=== PATIENT | female | born 1955 | race Caucasian/White ===

== ENCOUNTER 2018-03-07 09:18 | Emergency (ER) | payer OTHER ==
[2018-03-07] MEDS ORDERED: ACETAMINOPHEN 500 MG TAB PO ONE (09:43)
--- NOTE | 2018-03-07 10:22 | EDPHY ---
H & P Time Seen by Provider: 03/07/18 09:29 HPI/ROS: This patient describes a closed head injury at work. She explains that she was facing away from her desk in a standing position and thought her chair was closer to her when she attempted to sit down. She only glance the edge of the chair which then slipped away causing of the fall backward striking her occiput against the edge of her wooden desk and then striking it again against a metal support bar below the desk. She was briefly dazed for which she describes as sec she estimates several seconds. She sat on the floor thereafter and then regained her composure noted a mild headache in the occiput to 3/10 intensity. She took ibuprofen 600 mg shortly thereafter his incident that occurred at 7:45 a.m. Today. She reports associated right lateral neck pain and mild midline neck pain around T1 area. She came in by private vehicle for evaluation. ROS: Constitutional: She felt well prior to the fall Musculoskeletal: No midline back pain. No extremity injuries. Neuro: No confusion. She has baseline tingling to her right hand that she attributes to carpal tunnel syndrome with no new numbness tingling or weakness. HEENT: No facial injuries or other complaints. No vision changes Pulmonary: No chest wall pain GI: No belly pain, nausea or vomiting Integumentary: No lacerations abrasions from the fall 10 point ROS is otherwise negative Past Medical/Surgical History: Carpal tunnel syndrome Interstitial cystitis Hypothyroidism Hypertension Social History: She does office work Smoking Status: Former smoker Physical Exam: Physical exam: Vital signs are normal General: Patient is in no acute distress. HEENT: Is no external evidence of trauma on exam except mild tenderness to the occiput without laceration, abrasion or hematoma. Nose atraumatic. Ears: Clear bilaterally with no hemotympanum. Oropharynx: No dental trauma or malocclusion. No intraoral lacerations. Eyes: Pupils are equal and reactive to light. Extraocular motions are intact. Optic fundi: Clear with no papilledema or hemorrhage. Neck: Trachea is midline with no stridor. The patient has midline neck tenderness at T1 area. She has right lateral muscular tenderness extends the right trapezium is well. After radiographic clearance the patient retains a full range of motion without increase in pain. Lungs: Clear to auscultation bilaterally Cardiac: Regular rate and rhythm no murmur gallop or rub. Chest: Nontender. Abdomen: Soft nontender no organomegaly Back: Nontender Extremities: Atraumatic Neuro: GCS of 15. Cranial nerves II through XII intact. 2 out of 3 five- minute memory is intact. No sensory or motor deficits are appreciated. Initial differential diagnosis: Concussion, doubt cerebral contusion or other more significant head injury, cervical muscle strain, cervical fracture Constitutional: Initial Vital Signs Temperature (C) 36.3 C 03/07/18 09:24 Heart Rate 77 03/07/18 09:24 Respiratory Rate 18 03/07/18 09:24 Blood Pressure 131/83 H 03/07/18 09:24 O2 Sat (%) 94 03/07/18 09:24 O2 Delivery Mode Room Air Allergies/Adverse Reactions: No Known Allergies Allergy (Verified 03/07/18 09:29) Home Medications: Medication Instructions Recorded Levothyroxine [Synthroid 75 mcg 08/09/14 (*)] Cholesterol Med 03/07/18 Htn Med 03/07/18 Lexapro 03/07/18 Metformin HCl 03/07/18 Methocarbamol [Robaxin 750 mg (*)] 750 - 1,500 mg PO QID PRN #30 tab 03/07/18 Vitamin D3 (*) 03/07/18 MDM/Departure - MDM Diagnostics: Cervical spine x-rays: Degenerative changes but no acute fracture by my interpretation Imaging: I viewed and interpreted images myself Medications Given: Discontinued Medications Acetaminophen (Tylenol) 1,000 mg PO EDNOW ONE Stop: 03/07/18 09:44 Last Admin: 03/07/18 10:19 Dose: 1,000 mg ED Course/Re-evaluation: I counseled this patient regarding concussion and neck strain. I answered all her questions prior to discharge home Discussion: Patient with concussion without LOC and neck strain without red flag findings that would suggest subdural hemorrhage or other more significant injuries. However, she understands need to return emergency department should she develop worsening symptoms despite treatment plan of Tylenol and methocarbamol. - Depart Disposition: Home, Routine, Self-Care Clinical Impression: Concussion without loss of consciousness Qualifiers: Encounter type: initial encounter Qualified Code(s): S06.0X0A - Concussion without loss of consciousness, initial encounter Cervical muscle strain Qualifiers: Encounter type: initial encounter Qualified Code(s): S16.1XXA - Strain of muscle, fascia and tendon at neck level, initial encounter Condition: Good Instructions: Cervical Strain (ED), Concussion (ED) Additional Instructions: Diagnosis: 1. Concussion without loss of consciousness 2. Cervical muscle strain Plan: Rest until he feel improved. No work for the next couple days. Tylenol for pain anaogvp-[id number] mg per 4 hr as needed but do not exceed 3000 mg in 24 hr Methocarbamol muscle relaxant in addition At safest to hold off on nonsteroidal anti-inflammatory such as ibuprofen for the next 2 days. She still having symptoms after that then resume the ibuprofen in addition. Ice to neck 20 min at a time 3 times a day for the next few days. Avoid any activities but she risk for any recurrent head injury until 7 days after resolution of her current headache. Call your work comp clinic to arrange follow-up appointment for recheck for Saturday or Saturday. Return emergency department if he develops severe headache despite treatment plan, confusion, vomiting more than once or other concerns. Stand Alone Forms: Work Excuse Prescriptions: Methocarbamol [Robaxin 750 mg (*)] 750 - 1,500 mg PO QID PRN #30 tab PRN Reason: Muscle Spasms Referrals: Lexii Maynard MD [Primary Care Provider] - As per Instructions
[2018-03-07 10:56] VITALS: BP 125/84
== END 2018-03-07 10:45 | disposition home or self-care (01) ==
LOC: CED 09:18
DX: S06.0X0A Concussion without loss of consciousness, initial encounter (principal); S16.1XXA Strain of muscle, fascia and tendon at neck level, initial encounter; I10 Essential (primary) hypertension; Z87.891 Personal history of nicotine dependence; W01.198A Fall on same level from slipping, tripping and stumbling with subsequent striking against other object, initial encounter; Y92.69 Other specified industrial and construction area as the place of occurrence of the external cause; Y99.0 Civilian activity done for income or pay; Y93.89 Activity, other specified
CPT/HCPCS: 72050-PO